=== PATIENT | female | born 1945 | race Caucasian/White ===

== ENCOUNTER → 2016-09-22 | Outpatient (CLI) | payer OTHER | LOC: FIMAGING 11:31 | PROVIDERS: ATTEND Internal Medicine Gastroenterology | DX: K76.9 Liver disease, unspecified (principal); K80.20 Calculus of gallbladder without cholecystitis without obstruction ==

== ENCOUNTER 2016-09-28 07:26 | Day surgery (SDC) | payer OTHER ==
[2016-09-28] MEDS ORDERED: LR 1,000 ML IV ONE (07:41)
[2016-09-28] MEDS ORDERED: LIDOCAINE 1% 5 ML SDV ID PRN (07:41)
[2016-09-28] MEDS ORDERED: LIDOCAINE 1% 5 ML SDV ONE (07:43)
[2016-09-28] MEDS ORDERED: PROPOFOL 200 MG/20 ML VIAL ONE (09:29)
--- NOTE | 2016-09-28 10:11 | GPN ---
PROCEDURE: Upper endoscopy. INDICATIONS: Dysphagia and chest discomfort. MEDICATIONS USED: Anesthesia was administered by anesthesia colleagues. This was deemed necessary due to the patient's chronic comorbidities as well as underlying portal hypertension. DESCRIPTION OF PROCEDURE: After informed consent was obtained, the patient was placed in the left l ateral decubitus position, and the forward viewing upper endoscope was advanced through the mouth in to the proximal duodenum. Retroflex views in the gastric cardia were obtained. FINDINGS: 1. Severe esophagitis was discovered in the distal third of the esophagus. There was associated georgiana shireen narrowing. Biopsies of the distal third of the esophagus were obtained. The distal third of the esophagus was dilated with a 45-Georgian, then with a 54-Georgian, Savary dilator. 2. There was milder esophagitis through the middle third of the esophagus. Additional biopsies wer e obtained. 3. Mild to moderate gastritis with minimal antral erosion was discovered. This was biopsied. 4. Normal duodenum. IMPRESSION AND RECOMMENDATIONS: The patient has fairly marked esophagitis. I suspect that this fin ding explains her difficulty with swallowing as well as her chest discomfort. Multiple biopsies wer e obtained to determine the etiology of the esophagitis. There was also some luminal narrowing. It was difficult to determine if this was a consequence of esophagitis and edema or perhaps if there w as an underlying true stricture. Savary dilation was accomplished. At this point, I recommend the patient resume her outpatient therapies. She should be on a twice daily proton pump inhibitor thera py, and we will await the results of her biopsies prior to considering additional workup or therapy. /[id number]/MODL
== END 2016-09-28 11:05 | disposition home or self-care (01) ==
LOC: FSGY 07:26
PROVIDERS: ATTEND Internal Medicine Gastroenterology
PROC: 0DB28ZX Excision of Middle Esophagus, Via Natural or Artificial Opening Endoscopic, Diagnostic (ICD-10-PCS; principal; 2016-09-28 09:00)
PROC: 0DB68ZX Excision of Stomach, Via Natural or Artificial Opening Endoscopic, Diagnostic (ICD-10-PCS; principal; 2016-09-28 09:00)
PROC: 0DB38ZX Excision of Lower Esophagus, Via Natural or Artificial Opening Endoscopic, Diagnostic (ICD-10-PCS; principal; 2016-09-28 09:00)
PROC: 0D758ZZ Dilation of Esophagus, Via Natural or Artificial Opening Endoscopic (ICD-10-PCS; principal; 2016-09-28 09:00)
DX: K20.9 Esophagitis, unspecified (principal); K22.2 Esophageal obstruction; K29.70 Gastritis, unspecified, without bleeding; J44.9 Chronic obstructive pulmonary disease, unspecified
CPT/HCPCS: J2704

== ENCOUNTER 2017-01-15 21:28 | Emergency (ER) | payer OTHER ==
--- NOTE | 2017-01-15 22:16 | EDPHY ---
H & P Stated Complaint: c/o feeling chills/shaking beginning at 2100, no other sx Time Seen by Provider: 01/15/17 21:55 HPI/ROS: Chief Complaint: Chills HPI: 71-year-old woman who is sitting at home watching TV and o'clock this evening when she had the sudden onset of shaking chills. She states that she fell warm on the inside but cool on her skin. Her skin felt like she had was a up pain concussion. Has not had any other symptoms. Has not been ill recently. No other fevers or chills. No chest pain. No shortness of breath. No urinary symptoms better of the ordinary for her. No nausea or vomiting. No abdominal pain. No headache. No known ill contacts. Been in her usual state of health. Pt states she is feeling better now. ROS: 10 point Review of Systems is negative except as noted in the HPI. PMH: Oral cancer 8 years ago in remission, CVA, atrial fibrillation, COPD, pacemaker placement Social History: No smoking, no alcohol, no recreational drug use Family History: non-contributory Physical Exam: Gen: Awake, Alert, No Distress HEENT: Nose: no rhinorrhea Eyes: PERRLA, EOMI Mouth: Moist mucosa Neck: Supple, no JVD Chest: nontender, lungs clear to auscultation Heart: S1, S2 normal, no murmur Abd: Soft, non-tender, no guarding Back: no CVA tenderness, no midline tenderness Ext: no edema, non-tender Skin: no rash Neuro: CN II-XII intact, Sensation grossly intact, Strength 5/5 in bilateral upper and lower extremities - Medical/Surgical History Hx Asthma: No Hx Chronic Respiratory Disease: Yes Hx Diabetes: No Hx Cardiac Disease: Yes Hx Renal Disease: No Hx Cirrhosis: No Hx Alcoholism: No Hx HIV/AIDS: No Hx Splenectomy or Spleen Trauma: No Other PMH: COPD, a flutter, cardioversions, ablations, recent a fib, cva 2014, 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, gerd, overactive bladder,hypothyroid, - Social History Smoking Status: Former smoker Constitutional: Initial Vital Signs Temperature (C) 36.9 C 01/15/17 21:32 Heart Rate 81 01/15/17 21:32 Respiratory Rate 18 01/15/17 21:32 Blood Pressure 113/56 L 01/15/17 21:32 O2 Sat (%) 97 01/15/17 21:32 O2 Delivery Mode Nasal Cannula O2 (L/minute) 3 Allergies/Adverse Reactions: No Known Allergies Allergy (Verified 01/15/17 21:36) Home Medications: Medication Instructions Recorded Alendronate Sodium [Fosamax 70 MG 70 mg PO TH@0700 06/11/15 (*)] Aspirin [Aspirin 81mg (*)] 81 mg PO DAILY 06/11/15 Folic Acid [Folic Acid 1 MG (*)] 1 mg PO DAILY 06/11/15 Levothyroxine [Synthroid 50 mcg 50 mcg PO DAILY06 #30 tab 06/12/15 (*)] Diltiazem HCl [Cartia Xt] 120 mg PO DAILY 12/11/15 LORazepam [Ativan] 0.5 mg PO HS PRN 12/11/15 Psyllium Husk (with Sugar) 3 tsp PO DAILY PRN 12/11/15 [Metamucil Powder] Vit C/Dl-E AC/Lut/Copper/Znox 1 each PO BID 12/11/15 [Preservision Softgel] Propafenone HCl [Rythmol 150mg (*)] 150 mg PO Q8 #90 tab 12/15/15 Nitrofurantoin Monohyd/M-Cryst 100 mg PO BID #10 capsule 01/15/17 [Macrobid 100 mg Capsule] Oxybutynin 01/15/17 Pantoprazole Sodium 01/15/17 Ranitidine HCl 01/15/17 Medical Decision Making - Diagnostics Imaging Results: Imaging Impressions Chest X-Ray 01/15/17 22:11 Impression: Question mild bronchitis. Otherwise, no evidence for acute cardiopulmonary abnormality. Stable chronic findings, as above. Imaging: I viewed and interpreted images myself ED Course/Re-evaluation: UA consistent with urinary tract infection. Will start her on Macrobid. Patient otherwise looks well. Vital signs are normal. Chest x-ray is normal. She has not have a leukocytosis at this time. Urine culture has been sent for culture. She will follow up with primary care physician in 2 days to check on the culture results. - Data Points Laboratory Results: Laboratory Results 01/15/17 22:10 01/15/17 22:10 01/15/17 01/15/17 01/15/17 22:30 22:10 22:10 WBC 6.34 10^3/uL 10^3/uL (3.80-9.50) RBC 3.68 10^6/uL L 10^6/uL (4.18-5.33) Hgb 11.8 g/dL L g/dL (12.6-16.3) Hct 35.5 % L % (38.0-47.0) MCV 96.5 fL fL (81.5-99.8) MCH 32.1 pg pg (27.9-34.1) MCHC 33.2 g/dL g/dL (32.4-36.7) RDW 14.2 % % (11.5-15.2) Plt Count 195 10^3/uL 10^3/uL (150-400) MPV 9.9 fL fL (8.7-11.7) Neut % (Auto) 86.8 % H % (39.3-74.2) Lymph % (Auto) 6.9 % L % (15.0-45.0) [place] % (Auto) 3.9 % L % (4.5-13.0) Eos % (Auto) 1.3 % % (0.6-7.6) Baso % (Auto) 0.5 % % (0.3-1.7) Nucleat RBC Rel Count 0.0 % % (0.0-0.2) Absolute Neuts (auto) 5.50 10^3/uL 10^3/uL (1.70-6.50) Absolute Lymphs (auto) 0.44 10^3/uL L 10^3/uL (1.00-3.00) Absolute Monos (auto) 0.25 10^3/uL L 10^3/uL (0.30-0.80) Absolute Eos (auto) 0.08 10^3/uL 10^3/uL (0.03-0.40) Absolute Basos (auto) 0.03 10^3/uL 10^3/uL (0.02-0.10) Absolute Nucleated RBC 0.00 10^3/uL 10^3/uL (0-0.01) Immature Gran % 0.6 % % (0.0-1.1) Immature Gran # 0.04 10^3/uL 10^3/uL (0.00-0.10) Sodium 138 mEq/L mEq/L (134-144) Potassium 4.2 mEq/L mEq/L (3.5-5.2) Chloride 102 mEq/L mEq/L (97-110) Carbon Dioxide 21 mEq/l L mEq/l (22-31) Anion Gap 15 mEq/L mEq/L (8-16) BUN 28 mg/dL H mg/dL (7-23) Creatinine 1.8 mg/dL H mg/dL (0.6-1.0) Estimated GFR 28 Glucose 126 mg/dL H mg/dL (70-100) Calcium 9.8 mg/dL mg/dL (8.5-10.4) Urine Color JENNY Urine Appearance CLEAR Urine pH 5.0 (5.0-7.5) Ur Specific Delia 1.020 (1.002-1.030) Urine Protein NEGATIVE (NEGATIVE) Urine Ketones TRACE H (NEGATIVE) Urine Blood NEGATIVE (NEGATIVE) Urine Nitrate NEGATIVE (NEGATIVE) Urine Bilirubin NEGATIVE (NEGATIVE) Urine Urobilinogen 4.0 EU H EU (0.2-1.0) Ur Leukocyte Esterase TRACE H (NEGATIVE) Urine RBC 5-10 /hpf H /hpf (0-3) Urine WBC 5-10 /hpf H /hpf (0-3) Ur Epithelial Cells TRACE /lpf /lpf (NONE-1+) Urine Bacteria TRACE /hpf H /hpf (NONE SEEN) Hyaline Casts 1-5 /lpf /lpf (0-1) Urine Glucose NEGATIVE (NEGATIVE) Departure - Departure Disposition: Home, Routine, Self-Care Clinical Impression: UTI (urinary tract infection) Condition: Good Instructions: Urinary Tract Infection in Women (ED), Nitrofurantoin Combination (By mouth) Additional Instructions: Follow up with primary care physician in 2 days to check on urine culture results. Please take your full course of antibiotics. Return to the emergency department for increasing fever or chills, chest pain, shortness of breath, nausea, abdominal pain, confusion, or any other concerns. Referrals: Ave Dodson MD [Primary Care Provider] - As per Instructions Prescriptions: Nitrofurantoin Monohyd/M-Cryst [Macrobid 100 mg Capsule] 100 mg PO BID #10 capsule
[2017-01-15 22:34] LABS: % IMMATURE GRANULYOCYTES 0.6 % (0.0-1.1); ABSOLUTE IMMATURE GRANULOCYTES 0.04 10^3/uL (0.00-0.10); ADD DIFF? NO; ADD MORPH? NO; ADD SCAN? NO; ATYPICAL LYMPHOCYTE FLAG 0 (0-99); FRAGMENT RBC FLAG 0 (0-99); HEMATOCRIT 35.5 % (38.0-47.0); HEMOGLOBIN 11.8 g/dL (12.6-16.3); LEFT SHIFT FLG 20 (0-99); LIPEMIA HEMOLYSIS FLAG 80 (0-99); MEAN CELL HEMOGLOBIN 32.1 pg (27.9-34.1); MEAN CELL HEMOGLOBIN CONCENTR. 33.2 g/dL (32.4-36.7); MEAN CELL VOLUME 96.5 fL (81.5-99.8); MEAN PLATELET VOLUME 9.9 fL (8.7-11.7); PLATELET CLUMPS FLAG 10 (0-99); PLATELET COUNT 195 10^3/uL (150-400); RED BLOOD CELL COUNT 3.68 10^6/uL (4.18-5.33); RED CELL DISTRIBUTION WIDTH 14.2 % (11.5-15.2)
[2017-01-15 22:45] LABS: ANION GAP 15 mEq/L (8-16); CALCIUM 9.8 mg/dL (8.5-10.4); CARBON DIOXIDE 21 mEq/l (22-31); CHLORIDE 102 mEq/L (97-110); CREATININE 1.8 mg/dL (0.6-1.0); GLOMERULAR FILTRATION RATE 28; GLUCOSE 126 mg/dL (70-100); POTASSIUM 4.2 mEq/L (3.5-5.2); SODIUM 138 mEq/L (134-144)
[2017-01-15 22:54] LABS: COLOR AMBER; LEUKOCYTE ESTERASE,URINE TRACE (NEGATIVE); NITRITE,URINE NEGATIVE (NEGATIVE)
[2017-01-15 22:57] LABS: BACTERIA TRACE /hpf (NONE SEEN)
[2017-01-15] MEDS ORDERED: NITROFURANTOIN 100MG PREPACK#2 BTL TAKEHOME ONE (23:06)
[2017-01-15 23:42] VITALS: BP 115/75; PULSE 82; RESP 16; TEMP 98.2; O2SAT 96
== END 2017-01-15 23:40 | disposition home or self-care (01) ==
DX: N39.0 Urinary tract infection, site not specified (principal); J44.9 Chronic obstructive pulmonary disease, unspecified; B96.89 Other specified bacterial agents as the cause of diseases classified elsewhere; Z85.819 Personal history of malignant neoplasm of unspecified site of lip, oral cavity, and pharynx; Z86.73 Personal history of transient ischemic attack (TIA), and cerebral infarction without residual deficits; Z87.891 Personal history of nicotine dependence; Z95.0 Presence of cardiac pacemaker

== ENCOUNTER 2017-05-10 08:21 | Observation (INO) | payer OTHER ==
[2017-05-10] MEDS ORDERED: LIDOCAINE 1% 2 ML INJ ONE (09:07)
[2017-05-10] MEDS ORDERED: BUPIVACAINE 0.25% 30 ML SDV ONE (09:35)
[2017-05-10] MEDS ORDERED: OXYMETAZOLINE 30 ML NASAL SPRAY ONE (09:35)
[2017-05-10] MEDS ORDERED: LIDOCAINE 1% 300 MG/30 ML SDV ONE (09:35)
[2017-05-10] MEDS ORDERED: ceFAZolin 2 GM/DEXTROSE 100 ML IV ONE (09:37)
[2017-05-10] MEDS ORDERED: DEXAMETHASONE 4 MG/ML VIAL IVP ONE (09:37)
--- NOTE | 2017-05-10 09:39 | PDHPUP ---
History & Physical Update H&P update statement: This history and physical update is based on an assessment of the patient which was completed after admission or registration (within 24 hours), but prior to the surgery/procedure. H&P update: no change in patient's condition since H&P completed
--- NOTE | 2017-05-10 09:41 | PDANEPAE ---
ANE History of Present Illness Tumor on tongue ANE Past Medical History - Cardiovascular History Hx Hypertension: Yes Hx Arrhythmias: No Hx Chest Pain: No Hx Coronary Artery / Peripheral Vascular Disease: Yes Hx CHF / Valvular Disease: No Hx Palpitations: No Cardiovascular History Comment: A-FIB - Pulmonary History Hx COPD: Yes Hx Asthma/Reactive Airway Disease: No Hx Recent Upper Respiratory Infection: Yes Hx Oxygen in Use at Home: Yes O2 in Use at Home (L/minute): O2 2L CONT. Hx Sleep Apnea: No Sleep Apnea Screening Result - Last Documented: Negative Pulmonary History Comment: PULMONARY HTN - Neurologic History Hx Cerebrovascular Accident: Yes Hx Seizures: No Hx Dementia: No Neurologic History Comment: STROKE 10/2013 - Endocrine History Hx Diabetes: Yes Endocrine History Comment: HYPOTHYROID - Renal History Hx Renal Disorders: No - Liver History Hx Hepatic Disorders: No - Neurological & Psychiatric Hx Hx Neurological and Psychiatric Disorders: Yes Neurological / Psychiatric History Comment: ANXIETY/DEPRESSION - Cancer History Hx Cancer: Yes Cancer History Comment: 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 THORASCOPIC LATERAL APPENDAGE LIGATION 08/2015. CARDIO VERSIONS MULTIPLE. HIP FX REPAIR W/JENNIE L ANE Review of Systems Review of Systems: - Exercise capacity METS (RN): 4 METS - Pacemaker Pacemaker Inspector Weights And Measures: Biotronik MIRTA Patient History - Allergies Allergies/Adverse Reactions: No Known Allergies Allergy (Verified 01/15/17 21:36) - Home Medications Home medications: home medication list seen and reviewed Home Medications: Alendronate Sodium [Fosamax 70 MG (*)] 70 mg PO TH@0700 06/11/15 [Last Taken ] Aspirin [Aspirin 81mg (*)] 81 mg PO DAILY 06/11/15 [Last Taken 09/23/16] Folic Acid [Folic Acid 1 MG (*)] 1 mg PO DAILY 06/11/15 [Last Taken 12/11/15] Diltiazem HCl [Cartia Xt] 120 mg PO DAILY 12/11/15 [Last Taken 09/27/16] LORazepam [Ativan] 0.5 mg PO HS PRN 12/11/15 [Last Taken 09/27/16] Psyllium Husk (with Sugar) [Metamucil Powder] 3 tsp PO DAILY PRN 12/11/15 [Last Taken 09/21/16] Vit C/Dl-E AC/Lut/Copper/Znox [Preservision Softgel] 1 each PO BID 12/11/15 [ Last Taken 09/20/16] Oxybutynin 01/15/17 [Last Taken Unknown] Pantoprazole Sodium 01/15/17 [Last Taken Unknown] Paroxetine Cr 05/07/17 [Last Taken Unknown] - NPO status NPO Since - Liquids (Date): 05/10/17 NPO Since - Liquids (Time): 00:00 NPO Since - Solids (Date): 05/10/17 NPO Since - Solids (Time): 00:00 - Anes Hx Anes Hx: no prior problems - Smoking Hx Smoking Status: Former smoker - Family Anes Hx Family Anes Hx: neg - N/A Family Hx Anesthesia Complications: NEG ANE Labs/Vital Signs - Vital Signs Blood Pressure: 128/67 Heart Rate: 80 Respiratory Rate: 20 O2 Sat (%): 94 Height: 165.1 cm Weight: 50.802 kg ANE Physical Exam - Airway Neck exam: FROM Mallampati Score: Class 1 Mouth exam: dentures - Pulmonary Pulmonary: no respiratory distress - Cardiovascular Cardiovascular: regular rate and rhythym ANE Anesthesia Plan Anesthesia Plan: general endotracheal anesthesia
[2017-05-10] MEDS ORDERED: fentaNYL 100 MCG/2 ML INJ ONE ×2 (09:48→10:30)
[2017-05-10] MEDS ORDERED: PROPOFOL 200 MG/20 ML VIAL ONE (09:48)
[2017-05-10] MEDS ORDERED: LIDOCAINE 2% 5 ML SDV ONE ×2 (09:49)
[2017-05-10] MEDS ORDERED: DEXAMETHASONE 4 MG/ML VIAL ONE (09:49)
[2017-05-10] MEDS ORDERED: ROCURONIUM 50 MG/5 ML VIAL ONE (09:49)
--- NOTE | 2017-05-10 09:53 | PDANEPAE ---
MIRTA Past Medical History - Cardiovascular History Hx Hypertension: Yes Hx Arrhythmias: No Hx Chest Pain: No Hx Coronary Artery / Peripheral Vascular Disease: Yes Hx CHF / Valvular Disease: No Hx Palpitations: No Cardiovascular History Comment: A-FIB - Pulmonary History Hx COPD: Yes Hx Asthma/Reactive Airway Disease: No Hx Recent Upper Respiratory Infection: Yes Hx Oxygen in Use at Home: Yes O2 in Use at Home (L/minute): O2 2L CONT. 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 THORASCOPIC LATERAL APPENDAGE LIGATION 08/2015. CARDIO VERSIONS MULTIPLE. HIP FX REPAIR W/JENNIE L ANE Review of Systems Review of Systems: - Exercise capacity METS (RN): 4 METS - Pacemaker Pacemaker Facsimile Operator: StereomoodroniMILI MIRTA Patient History - Allergies Allergies/Adverse Reactions: No Known Allergies Allergy (Verified 01/15/17 21:36) - Home Medications Home Medications: Alendronate Sodium [Fosamax 70 MG (*)] 70 mg PO TH@0700 06/11/15 [Last Taken ] Aspirin [Aspirin 81mg (*)] 81 mg PO DAILY 06/11/15 [Last Taken 09/23/16] Folic Acid [Folic Acid 1 MG (*)] 1 mg PO DAILY 06/11/15 [Last Taken 12/11/15] Diltiazem HCl [Cartia Xt] 120 mg PO DAILY 12/11/15 [Last Taken 09/27/16] LORazepam [Ativan] 0.5 mg PO HS PRN 12/11/15 [Last Taken 09/27/16] Psyllium Husk (with Sugar) [Metamucil Powder] 3 tsp PO DAILY PRN 12/11/15 [Last Taken 09/21/16] Vit C/Dl-E AC/Lut/Copper/Znox [Preservision Softgel] 1 each PO BID 12/11/15 [ Last Taken 09/20/16] Oxybutynin 01/15/17 [Last Taken Unknown] Pantoprazole Sodium 01/15/17 [Last Taken Unknown] Paroxetine Cr 05/07/17 [Last Taken Unknown] - Smoking Hx Smoking Status: Former smoker - Family Anes Hx Family Hx Anesthesia Complications: NEG ANE Labs/Vital Signs - Vital Signs Height: 165.1 cm Weight: 50.802 kg
[2017-05-10] MEDS ORDERED: SUGAMMADEX SODIUM 200 MG/2 ML VIAL IVP ONE (10:38)
[2017-05-10] MEDS ORDERED: ONDANSETRON 4 MG/2 ML VIAL ONE (10:38)
[2017-05-10] MEDS ORDERED: HYDROmorphONE/DILAUDID 1 MG/ML INJ IVP PRN (10:47)
[2017-05-10] MEDS ORDERED: ONDANSETRON 4 MG/2 ML VIAL IVP PRN ×2 (10:47→11:42)
[2017-05-10] MEDS ORDERED: NALOXONE HCL 0.4 MG/ML INJ IVP PRN (10:47)
[2017-05-10] MEDS ORDERED: fentaNYL 100 MCG/2 ML INJ IVP PRN (10:47)
[2017-05-10] MEDS ORDERED: HYDROCOD/APAP 7.5/325 IN 15ML UDCUP PO PRN (11:42)
[2017-05-10] MEDS ORDERED: OXYCODONE/APAP 5/325 TAB PO PRN (11:42)
[2017-05-10] MEDS ORDERED: D5W LR 1,000 ML IV SCH (11:45)
--- NOTE | 2017-05-10 11:47 | POSTOPPROG ---
Post Op Note Date of Operation: 05/10/17 Surgeon: Kylee Jones Anesthesiologist: Remington Anesthesia: GET(General Endotracheal) Pre-op Diagnosis: tongue cancer Post-op Diagnosis: same Procedure: right hemiglossectomy Findings: same Inf/Abcess present in the surg proc area at time of surgery?: No Depth: Deep Incisional (Fascial) EBL: 50-100 Total fluids administered: 650 Complications: none Specimen(s): right tongue cancer plus margins
--- NOTE | 2017-05-10 12:00 | POSTANESTH ---
Post Anesthetic Evaluation Cardiovascular Status: Normal, Stable Respiratory Status: Normal, Stable Level of Consciousness/Mental Status: Can Participate in Eval Pain Control: Adequate, Prn Tx Ordered Nausea/Vomiting Control: Adequate, Prn Tx Ordered Complications Possibly Related to Anesthesia: None Noted
--- NOTE | 2017-05-10 12:30 | GOP ---
[f rep st] OPERATIVE REPORT DATE OF OPERATION: 05/10/2017 SURGEON: David Jones MD ANESTHESIA: General endotracheal. PREOPERATIVE DIAGNOSIS: Squamous cell carcinoma right ugo tongue. POSTOPERATIVE DIAGNOSIS: Squamous cell carcinoma right ugo tongue. PROCEDURE PERFORMED: Laryngoscopy with right hemiglossectomy. FINDINGS: Squamous cell carcinoma of tongue widely excised. Frozen section margins positive for res idual high-grade dysplasia, re-excised. ESTIMATED BLOOD LOSS: 75 mL. DESCRIPTION OF PROCEDURE: The patient was placed on the operating table in the supine position. Aft er induction of adequate general endotracheal anesthesia, sterile draping was performed. Sterile eye pads and head drape were placed. A tooth guard was placed to protect the upper alveolar ridge. The Dedo laryngoscope was advanced into the oral cavity and into the oropharynx. All was found to be re latively within normal limits. The scope was advanced further. The larynx and hypopharynx were thor oughly visualized. No abnormality was noted. The right and left piriform sinuses as well as post cr icoid region and posterior pharyngeal wall were found to be within normal limits to the level of the esophageal inlet. Once this was completed, the laryngoscope was withdrawn. The tongue was thoroughly palpated. The on ly abnormality palpable was the previously biopsied squamous cell carcinoma of the right lateral tong ue. At this point, the right tongue cancer was widely excised using a needle-tip Bovie electrocauter y. Hemostasis was obtained throughout this dissection by use of Bovie electrocautery. The displaced right margins were sent for frozen section evaluation from the lateral, medial, anterior, posterior, and deep aspect of the defect. This revealed residual high-grade dysplasia along the medial and lat eral aspect of the oral wound. The mucosa in this area was widely re-excised and its margin was inke d and sent for formal pathologic evaluation. At this point, the right ugo tongue defect was closed utilizing 3-0 Vicryl sutures. Once the defect had been closed, the area surrounding the resection was infiltrated with 0.25% Marcaine solution. A total of 10 mL were injected with care given to the avoidance of intravascular injection. At this p oint, the procedure was terminated. Patient was then awakened from postanesthesia recovery in stable condition. FLUID REPLACEMENT: 650 mL. COMPLICATIONS: None. /[id number]/MODL
[2017-05-10] MEDS ORDERED: DEXAMETHASONE 4 MG/ML VIAL IVP SCH (14:00)
[2017-05-10 14:24] VITALS: RESP 16
[2017-05-10] MEDS ORDERED: AMOXICILLIN SUSP 250 MG/5 ML BTL PO SCH (16:00)
[2017-05-10 16:05] VITALS: BP 119/62; PULSE 67; TEMP 97.8; O2SAT 95
--- NOTE | 2017-05-10 17:41 | SOAPPROG ---
SOAP Progress Note Assessment/Plan: Assessment: 72 year old female s/p partial glossectomy completed this morning. She is doing well, no concerns. Afebrile, suture line intact, no bleeding, no tongue swelling , stable for discharge. Will d/c now. 05/10/17 17:40 Objective: Vital Signs Temp Pulse Resp BP Pulse Ox 36.6 C 67 16 119/62 95 05/10/17 16:04 05/10/17 16:04 05/10/17 16:04 05/10/17 16:04 05/10/17 16:04 05/09/17 05/10/17 05/11/17 05:59 05:59 05:59 Intake Total 1250 Output Total 525 Balance 725 ICD10 Worksheet Patient Problems: Problems Problem Status Onset Coronary arterio-cameral fistula Acute Coronary artery disease excluded Acute PAD (peripheral artery disease) Acute Atrial fibrillation Chronic Hypothyroidism Chronic
--- NOTE | 2017-05-11 11:31 | ASDISCHSUM ---
Discharge Information Plan Status: Medically Cleared to Leave: Discharge Date:05/10/2017 05:59 PM CM D/C Disposition: ADT D/C Disposition:Home, Routine, Self-Care Projected Discharge Date:05/10/2017 05:59 PM Transportation at D/C: Discharge Delay Reason: Follow-Up Date:05/10/2017 05:59 PM Discharge Slot: Final Diagnosis: Placement Information Patient Contact Information Contact Name:AMBROSIO Relationship: Address:[address] [place] [address] Work Phone: City:[facility] Phone: State/Zip Code:[place] [address] Email: Financial Information Financial Class:Medicare Advantage Plans Primary Plan Desc:СВЕТЛАНА CHOICE PPO MEDICARE Primary Plan Number:[id number] Secondary Plan Desc: Secondary Plan Number: Assessment Information Intervention Information Intervention Type:*Incorrect Registration Date of Service:05/11/2017 04:03 AM Patient Type:Observation Staff Member:PAZ Moss Susan Hours: Discipline: Severity: Comment:
== END 2017-05-10 17:59 | disposition home or self-care (01) ==
LOC: F3E 08:21 → INTOOBSV 08:21 → EDSTATUS 10:15 → F3E 13:11
PROVIDERS: ADMIT Otolaryngology; ATTEND Otolaryngology
PROC: 0CB7XZX Excision of Tongue, External Approach, Diagnostic (ICD-10-PCS; principal; 2017-05-10 10:15)
PROC: 0CJS8ZZ Inspection of Larynx, Via Natural or Artificial Opening Endoscopic (ICD-10-PCS; principal; 2017-05-10 10:15)
DX: C02.8 Malignant neoplasm of overlapping sites of tongue (principal); Z85.828 Personal history of other malignant neoplasm of skin; J44.9 Chronic obstructive pulmonary disease, unspecified; Z87.891 Personal history of nicotine dependence
CPT/HCPCS: 31525; 41120; J0690; J1100; J2405; J2704; J3010; J0171

== ENCOUNTER → 2018-02-20 | Outpatient (CLI) | payer OTHER | LOC: FCPNEURO 22:37 | PROVIDERS: ATTEND Internal Medicine Sleep Medicine | DX: G47.61 Periodic limb movement disorder (principal); G47.36 Sleep related hypoventilation in conditions classified elsewhere ==

== ENCOUNTER → 2018-08-23 | Outpatient (CLI) | payer OTHER | LOC: FIMAGING 16:06 | PROVIDERS: ATTEND Internal Medicine Pulmonary Disease | DX: R06.02 Shortness of breath (principal) ==